=== PATIENT | female | born 1965 | race Caucasian/White ===

== ENCOUNTER 2023-05-04 10:24 | Emergency (ER) | payer BC, SELFPAY ==
[2023-05-04 10:46] VITALS: BP 120/79
--- NOTE | 2023-05-04 11:27 | ED.GENMED ---
History of Present Illness
<KALIE De Anda - Last Filed: 05/04/23 12:30>
General
Chief Complaint: Musculo-Skeletal Complaint
Source: patient
Exam Limitations: none
Time Seen by Provider: 05/04/23 11:14
Nursing documentation reviewed up to this point in time: agreed with
Travel History
Have you had any contact with someone who has COVID-19?: No
Do you have any symptoms of coronavirus? Fever > 100 degrees, chills, cough, shortness of breath, sore throat, loss of taste or smell, muscle aches, or headache?: No
History of Present Illness
History of Present Illness:
Patient is a 57 year old female who reports L>R groin pain and L sided lumbar pain x 2 days. Patient reports increasing exercise frequency and intensity the last 2 weeks and attributes the pain to this change. Patient rates the pain in the L groin
at 7-8/10 and R at 2/10. Patient reports ibuprofen helps symptoms and lying prone makes it worse. Patient reports headache and dizziness today from lack of sleep. Patient denies sensation or strength changes, urinary or bowel incontinence, chest
pain, shortness of breath, and skin changes.
Phy Exam
<KALIE De Anda - Last Filed: 05/04/23 12:30>
Cardiovascular Exam
Cardiovascular Exam: regular rate/rhythm
Pulmonary Exam
Pulmonary Exam: lungs clear
Musculoskeletal Exam
Musculoskeletal Exam: full ROM, back pain and no edema
Course
<KALIE De Anda - Last Filed: 05/04/23 12:30>
Vital Signs
Initial and Last Documented VS:
Initial Vital Signs
Temp Pulse Resp BP Pulse Ox
97.9 F 71 20 120/79 97
05/04/23 10:46 05/04/23 10:46 05/04/23 10:46 05/04/23 10:46 05/04/23 10:46
Last Documented Vital Signs
Temp Pulse Resp BP Pulse Ox
97.9 F 71 20 120/79 97
05/04/23 10:46 05/04/23 10:46 05/04/23 10:46 05/04/23 10:46 05/04/23 10:46
<Jhon Lopez DO - Last Filed: 05/04/23 14:25>
Vital Signs
Initial and Last Documented VS:
Initial Vital Signs
Temp Pulse Resp BP Pulse Ox
97.9 F 71 20 120/79 97
05/04/23 10:46 05/04/23 10:46 05/04/23 10:46 05/04/23 10:46 05/04/23 10:46
Last Documented Vital Signs
Temp Pulse Resp BP Pulse Ox
97.9 F 71 20 120/79 97
05/04/23 10:46 05/04/23 10:46 05/04/23 10:46 05/04/23 10:46 05/04/23 10:46
<Jhon Lopez DO - Last Filed: 05/04/23 14:25>
*Pulse Oximetry
Patient hypoxic: no
*EKG
Interpreted by ED Provider?: NA
*Dip Brazier Interpretation
Rate: Dip Brazier- N/A
*Critical Care Note
Total Time (30-74mins, 75-104mins- exclusive of procedures): Not Applicable
ED Attending Note
<KALIE De Anda - Last Filed: 05/04/23 12:30>
-
Portions of this chart may have been created with voice recognition software.� Occasional wrong word or��sound alike� substitutions may have occurred due to the inherent limitations of voice recognition software.
<Jhon Lopez DO - Last Filed: 05/04/23 14:25>
ED Attending Note
Patient seen and examined by attending physician: Yes
I performed the substantive portion of visit, reviewed & personally made and approve the management plan that is documented in note by myself or JARAD.: Yes
I performed a history and physical exam of patient and discussed management with resident, I reviewed resident's note and agree with documented findings and plan of care.: Yes
ED Attending Note:
Patient is a 57-year-old female who presents with left lower quadrant tenderness that increases with supine position. This has been going on for some time but got progressively worse over the past week especially after increasing exercising
especially with weights. Patient states she was doing kettle amor Samoan twist when she felt the pain get worse. Patient denies any nausea, vomiting or diarrhea. Patient states this is not her ulcerative colitis. Patient denies fever or chills.
Patient does have occasional pain with urination. This is after urination and she has pain in the same place. Patient has noticed small amount of incontinence. Patient has not had childbirth. Patient had a hysterectomy. On physical exam
patient is tender along the anterior superior iliac spine and the inferior iliac spine. With contraction of abdominal musculature becomes worse. Patient appears to have abdominal muscle/fascia strain. Patient will be started on pain medications
and referred to physical therapy.
Discharge Plan
Departure
Patient Disposition: Home (Routine Discharge)
Date of Disposition: 05/04/23
Time of Disposition: 14:04
Patient with high blood pressure during this ER visit?: No
Condition: Fair
Covid-19: Not Applicable
Discharge Problem:
Strain of muscle, fascia and tendon of abdomen, initial encounter
Instructions: Abdominal Muscle Strain (DC), Using Cold for Pain
Prescriptions:
New
oxycodone 5 mg tablet
5 mg PO Q4H PRN (Reason: Pain) Qty: 14 0RF
Referrals:
June Grant CRNP [Family Provider] -
Activity Restrictions/Additional Instructions:
No weight lifting for 2 weeks. May do range of motion but only to the point of pain and not beyond it. Follow-up with physical therapy.
[2023-05-04 14:30] VITALS: BP 105/78
[2023-05-04 14:45] VITALS: BP 106/70
== END 2023-05-04 14:35 | disposition home or self-care (01) ==
LOC: EMR 10:24
PROVIDERS: EMERGENCY PHYSICIAN Emergency Medicine; FAMILY PHYSICIAN Nurse Practitioner
DX: S39.011A Strain of muscle, fascia and tendon of abdomen, initial encounter (principal); X50.0XXA Overexertion from strenuous movement or load, initial encounter
CPT/HCPCS: 99283

== ENCOUNTER → 2023-05-26 09:40 | Outpatient (REF) | payer BC, SELFPAY | LOC: RAD 09:40 | PROVIDERS: ATTENDING PHYSICIAN Nurse Practitioner | DX: M85.80 Other specified disorders of bone density and structure, unspecified site (principal) | CPT/HCPCS: 77080 ==

== ENCOUNTER 2024-03-18 10:39 | Emergency (ER) | payer BC, SELFPAY ==
[2024-03-18 10:55] VITALS: BP 130/75
[2024-03-18] MEDS: NSS 1000 IV (13:35)
[2024-03-18] MEDS: ZOFRAN 4 MG IV (13:36)
[2024-03-18 13:46] LABS: % Basophils 0.3 % (0-2); % Eosinophils 2.5 % (0-6); % Immature Granulocytes 0.5 % (0-0.5); % Lymphocytes 13.4 % (20.5-51.1); % Monocytes 10.3 % (1.7-9.3); Absolute Eosinophils 0.2 10^3/uL (0-0.7); Absolute Monocytes 0.8 10^3/uL (0.1-0.6); Absolute Neutrophils 5.5 10^3/uL (1.4-6.5); Hematocrit 42.4 % (37.0-47.0); Hemoglobin 14.4 g/dL (12.0-16.0); Mean Corpuscular Hgb 31.6 pg (27.0-31.0); Mean Corpuscular Volume 93.2 fL (81.0-99.0); Mean Platelet Volume 8.9 fL (7.4-10.4); Nucleated Red Blood Cells % 0 %; Platelet Count 322 10^3/uL (130-400); Red Blood Cell Count 4.55 10^6/uL (4.20-5.40); Red Cell Dist. Width 13.1 % (11.5-14.5); White Blood Cell Count 7.6 10^3/uL (4.8-10.8)
[2024-03-18 14:00] VITALS: BP 126/76
[2024-03-18 14:00] LABS: ALT (SGPT) 16 U/L (0-35); AST (SGOT) 22 U/L (14-36); Albumin 4.6 g/dl (3.5-5.0); Alkaline Phosphatase 70 U/L (38-126); Blood Urea Nitrogen 10 mg/dl (7-17); Carbon Dioxide 21 mmol/L (22-30); Chloride 100 mmol/L (98-107); Glucose 106 mg/dl (70-99); Potassium 4.3 mmol/L (3.5-5.1); Sodium 135 mmol/L (135-145); Total Bilirubin 0.4 mg/dl (0.2-1.3); Total Protein 7.5 g/dl (6.3-8.2); eGFR > 60.00
--- NOTE | 2024-03-18 14:10 | ED.GENMED ---
History of Present Illness
General
Chief Complaint: Abdominal Symptoms
Source: patient and spouse
Exam Limitations: none
Time Seen by Provider: 03/18/24 13:07
Nursing documentation reviewed up to this point in time: agreed with
History of Present Illness
History of Present Illness:
58-year-old female presenting to the emergency department today with concerns of ongoing diarrhea very watery over the past 12 days also associated headache was in [place] up until yesterday. Patient concerned of traveler's diarrhea. Has
intermittent crampy abdominal pain but no ongoing sharp pain has had intermittent fevers denies 1 currently some nausea no vomiting. No chest pain or shortness of breath.
Review of Systems
Review of Systems
Allergies reviewed?: Yes
All Other Systems: ROS reviewed and negative except as documented in HPI and ROS
Phy Exam
Physical Exam
Physical Exam:
GENERAL: Alert , in no apparent distress
EYE: pupils equal and reactive
NECK: Supple, no significant adenopathy.
ENT: o/p clr, mmm.
CARDIAC: Regular rate and rhythm .
LUNGS: Clear breath sounds bilaterally, no acute respiratory distress, no wheezes/rales/rhonchi
ABDOMEN: Soft, without focal tenderness, no r/g, no cvat
NEUROLOGICAL: Alert and oriented, no focal neuro deficits
SKIN: Warm and dry, skin intact.
MUSCULOSKELETAL: No edema, well perfused.
PSYCH: Normal and appropriate interaction.
Course
Orders/Labs/Results
Orders:
Orders
03/18/24 13:24
0.9% Sodium Chloride 1000 ml [Nss] 1,000 ml IV BOLUS
Ondansetron Injectable [Zofran] 4 mg IV NOW STA
03/18/24 13:35
CBC/With Diff [Complete Blood Count/With Diff] Urgent
CMP [Comprehensive Metabolic Panel] Urgent
03/18/24 14:09
Azithromycin [Zithromax] 1,000 mg PO NOW STA
03/18/24 15:04
Ketorolac [Toradol] 15 mg IV NOW STA
03/18/24 15:22
STOOL [C difficile Antigen & Toxins] Urgent
SARI Source: Feces/Stool
Specimen Description:
Date Specimen was Collected: 03/18/24
Time Specimen was Collected: 15:19
Stool Culture Urgent
SARI Source: Feces/Stool
Specimen Description:
Date Specimen was Collected: 03/18/24
Time Specimen was Collected: 15:19
[place] Culture-Stool Urgent
SARI Source: Feces/Stool
Specimen Description:
Date Specimen was Collected: 03/18/24
Time Specimen was Collected: 15:19
Abnormal Lab Results
03/18/24
13:35
MCH 31.6 H pg
(27.0-31.0)
Absolute Lymphs (auto) 1.0 L 10^3/uL
(1.2-3.4)
Absolute Monos (auto) 0.8 H 10^3/uL
(0.1-0.6)
Lymphocytes % 13.4 L %
(20.5-51.1)
Monocytes % 10.3 H %
(1.7-9.3)
Carbon Dioxide 21 L mmol/L
(22-30)
Glucose 106 H mg/dl
(70-99)
03/18/24 13:35
03/18/24 13:35
Vital Signs
Initial and Last Documented VS:
Initial Vital Signs
Pulse Resp BP Pulse Ox
82 16 130/75 94
03/18/24 10:55 03/18/24 10:55 03/18/24 10:55 03/18/24 10:55
Last Documented Vital Signs
Temp Pulse Resp BP Pulse Ox
98.6 F 72 16 126/76 99
03/18/24 10:58 03/18/24 14:00 03/18/24 14:00 03/18/24 14:00 03/18/24 14:00
MDM/Problems Addressed
MDM/Problems Addressed:
58-year-old female presenting with concerns of ongoing diarrhea described as loose watery of the past 12 days. Was recently in [facility] up until yesterday. Denies any ongoing abdominal pain has had intermittent fevers none today. Vital signs
normal on arrival labs unremarkable. No evidence of significant dehydration or electrolyte abnormality. Stool sample sent. Concerning longevity of patient's diarrhea patient was given dose of azithromycin for potential traveler's diarrhea
otherwise here patient well-appearing no distress stable for discharge return precautions given.
*Critical Care Note
Total Time (30-74mins, 75-104mins- exclusive of procedures): Not Applicable
ED Attending Note
-
Portions of this chart may have been created with voice recognition software.� Occasional wrong word or��sound alike� substitutions may have occurred due to the inherent limitations of voice recognition software.
Discharge Plan
Departure
Patient Disposition: Home (Routine Discharge)
Date of Disposition: 03/18/24
Time of Disposition: 16:30
Patient with high blood pressure during this ER visit?: No
Condition: Good
Covid-19: Not Applicable
Discharge Problem:
Diarrhea
Instructions: Diarrhea in teens and adults
Prescriptions:
No Action
oxycodone 5 mg tablet
5 mg PO Q4H PRN (Reason: Pain) Qty: 14 0RF
Referrals:
June Grant CRNP [Family Provider] -
Activity Restrictions/Additional Instructions:
You came to the emergency department today with concerns of diarrhea. Here you are given dose of an antibiotic for treatment. Please stay hydrated and follow-up closely with the primary care doctor for ongoing symptoms. Return for any worsening,
new or concerning symptoms.
Interventions
Interventions:
*Risk Screen - Suicide Last Done: 03/18/24 14:20
*General Assessment Last Done: 03/18/24 14:20
*Neglect/Abuse Screening Last Done: 03/18/24 14:20
ED- Fall Risk Assessment Last Done: 03/18/24 14:20
MD-Oyapbm-[id number] Assessment Last Done: 03/18/24 14:20
Discharge Date and Time
Print Language: FRENCH
[2024-03-18] MEDS: ZITHROMAX 1000 MG PO (14:25)
[2024-03-18] MEDS: TORADOL 15 MG IV (15:10)
[2024-03-18 16:00] VITALS: BP 116/70
== END 2024-03-18 17:05 | disposition home or self-care (01) ==
LOC: EMR 10:39
PROVIDERS: Physician Assistant; EMERGENCY PHYSICIAN Emergency Medicine; FAMILY PHYSICIAN Nurse Practitioner
DX: R19.7 Diarrhea, unspecified (principal)
CPT/HCPCS: 99284; 96374; 96375; 96361; 80053; 85025; 87045; 87046; 87324; 87427; 87449

== ENCOUNTER → 2024-05-15 14:14 | Outpatient (REF) | payer BC, SELFPAY | LOC: WDC 14:14 | PROVIDERS: ATTENDING PHYSICIAN Obstetrics & Gynecology Gynecology; FAMILY PHYSICIAN Nurse Practitioner | DX: Z12.31 Encounter for screening mammogram for malignant neoplasm of breast (principal) | CPT/HCPCS: 77063; 77067 ==

== ENCOUNTER → 2024-06-01 10:30 | Outpatient (REF) | payer BC, SELFPAY | LOC: WDC 10:30 | PROVIDERS: ATTENDING PHYSICIAN Obstetrics & Gynecology Gynecology; FAMILY PHYSICIAN Nurse Practitioner | DX: R92.8 Other abnormal and inconclusive findings on diagnostic imaging of breast (principal) | CPT/HCPCS: 76642 ==

== ENCOUNTER → 2025-01-14 07:18 | Outpatient (REF) | payer BC, SELFPAY | LOC: RAD 07:18 | PROVIDERS: ATTENDING PHYSICIAN Physician Assistant; FAMILY PHYSICIAN Nurse Practitioner | DX: M79.605 Pain in left leg (principal) | CPT/HCPCS: 93971 ==